=== PATIENT | male | born 1980 | race Caucasian/White ===

== ENCOUNTER 2021-07-20 11:59 | Emergency (ER) | payer OTHER ==
[2021-07-20 12:18] VITALS: BP 132/76; PULSE 62; TEMP 98; BMI 31.3
== END 2021-07-20 17:30 | disposition home or self-care (01) ==
LOC: JERFT 11:59
DX: M79.10 Myalgia, unspecified site (principal); V87.7XXA Person injured in collision between other specified motor vehicles (traffic), initial encounter; Y92.9 Unspecified place or not applicable
CPT/HCPCS: 71046-TC-FY; 72050-TC-FY; 72070-TC-FY; 99284-25